=== PATIENT | female | born 1990 | race Asian ===

== ENCOUNTER 2017-06-09 17:22 | Day surgery (SDC) | payer OTHER ==
[2017-06-09 17:59] VITALS: BMI 26.6
[2017-06-09 18:00] VITALS: BP 136/81; TEMP 98.7
[2017-06-09] MEDS ORDERED: Lactated Ringer's 1,000 ML IV SCH (18:45)
[2017-06-09 19:14] LABS: FFN Internal QC Analyzer PASS (PASS); FFN Internal QC Cassette PASS (PASS); Fetal Fibronectin Negative (Negative)
--- NOTE | 2017-06-09 22:37 | PRG ---
DATE OF SERVICE: 06/09/2017 TIME OF SERVICE: 1730 hours. PRESENTING COMPLAINT: Contractions at 34 weeks gestation. HISTORY OF PRESENT ILLNESS: Ms. Bryan is a 26-year-old 2, para 1, previous and prev ious labor with delivery at 35 weeks, who presents complaining of contractions since 0900 jose rs today. She denies rupture of membranes, vaginal bleeding, change in vaginal discharge. She repor ts an active fetus. Of note, the patient has a significant varicose veins, greater right than left l eg and has had some complaints about this in the recent days, has had a right lower extremity Doppler ordered by Dr. Velasquez at [facility], but the patient has been noncompliant with Bindo tting this done. 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 She desires a TOLAC. A ntepartum record is not on the unit; however, blood type and other labs were obtained; 50-gram was wi thin normal limits, group B strep has not been done. PAST MEDICAL HISTORY: None. PAST SURGICAL HISTORY: C-sections. ALLERGIES: Denies. MEDICATIONS: vitamins. SOCIAL HISTORY: Denies tobacco, alcohol, or drug abuse. FAMILY HISTORY: Noncontributory. REVIEW OF SYSTEMS: Noncontributory. PHYSICAL EXAMINATION: GENERAL: Aged female, in no acute distress. VITAL SIGNS: Temperature 98.6, respirations 18, pulse 85, blood pressure 118/72. HEENT: Within normal limits. LUNGS: Clear to auscultation bilaterally. HEART: Regular rhythm. ABDOMEN: Soft. She has occasional indentable contractions every 5 minutes. FHTs are 140s. GENITOURINARY: Vulva is without lesions. Vaginal exam was performed by the nurse. The patient refu sed exam by male provider. She reports that her cervix to be closed, long, and high. fibronec tin and group B strep are collected. EXTREMITIES: The patient has varicosities, leg size does not seem to be significantly different righ t over the left. LABORATORY DATA: fibronectin negative. Group B strep pending. The patient declines lower ext remity Doppler due to insurance coverage. SUMMARY OF COURSE: The patient received 1 liter of lactated Ringer's, contractions ceased almost com pletely. She reported an active fetus and had reactive nonstress test. IMPRESSION: Contractions without evidence of labor. Negative fibronectin at 34 weeks gestation. PLAN: Discharge home. ER precautions. Keep scheduled followup with Dr. Velasquez.
[2017-06-10] MEDS ORDERED: FLU VACC QS2017-18 36 mo. & older 0.5 ML SYRINGE IM ONE (09:00)
== END 2017-06-09 19:56 | disposition home or self-care (01) ==
LOC: L&D/OP 17:22
PROVIDERS: ATTEND Obstetrics & Gynecology
DX: O47.03 False labor before 37 completed weeks of gestation, third trimester (principal); O22.03 Varicose veins of lower extremity in pregnancy, third trimester; Z3A.34 34 weeks gestation of pregnancy; Z79.899 Other long term (current) drug therapy; Z98.891 History of uterine scar from previous surgery
CPT/HCPCS: 82731; 87081; 96360; 96361; 99284

== ENCOUNTER 2017-07-08 15:49 | Day surgery (SDC) | payer OTHER ==
[2017-07-08 17:11] VITALS: BMI 27.6
--- NOTE | 2017-07-08 17:55 | HP ---
DATE OF SERVICE: 07/08/2017 PRIMARY FUR STRETCHER: Dr. Velasquez. CHIEF COMPLAINT: Abdominal pain. HISTORY OF PRESENT ILLNESS: The patient is a 26-year-old G2, P1 female with an intrauterine pregnanc y at 38 weeks and 3 days and has a history of previous for distress. She reports kory t she has had a contraction off and on for the last several days and reports that they had intensifie d this afternoon and are now spacing out again. She desires a trial of labor after and has a scheduled for 07/21/2017 if she does not enter labor on her own. She reports bloody show , but denies any leakage of fluid. She denies any fall or fever, headache, illness, chest pain, shor tness of breath, nausea, vomiting, diarrhea, or constipation. She denies any new rashes, any vaginal bleeding or leakage of fluid or urinary symptoms. PAST MEDICAL HISTORY: Negative. PAST SURGICAL HISTORY: Previous x1. SOCIAL HISTORY: Denies drug, alcohol or tobacco use. OBSTETRIC HISTORY: She has one 6-year-old child and no other pregnancies prior to the second one. ALLERGIES: No known drug allergies. MEDICATIONS: Vitamin supplements. OB LABS: Blood type is O positive, antibody screen is negative. Her Glucola was 84. She is rubella immune, HIV is nonreactive. Hepatitis B surface antigen is nonreactive. RPR is nonreactive. GBS s tatus is not recorded on the current documentation. PHYSICAL EXAMINATION: VITAL SIGNS: Blood pressure is 131/74, heart rate of 92, respiratory rate of 20, satting 99% on room air, temperature 98.0. GENERAL: She appears to be in no acute distress. She is alert and oriented, cooperative and pleasan t to interact with. HEENT: Normocephalic, atraumatic. LUNGS: Clear to auscultation bilaterally. HEART: Regular rate and rhythm. ABDOMEN: Gravid, soft, nontender. EXTREMITIES: Nontender, nonedematous. CERVICAL EXAM: Per nursing staff, she is 1.5 cm dilated, 50% effaced and -3 station, which is a valdez ge from her last visit with Dr. Velasquez reported closed. heart tracing performed for abdominal pain and . Fetus is noted to have a baseline in the 140s with moderate long-term variability, positive accelerations, no decelerations. She is havi ng contractions irregular about every 10-12 minutes with some irritability in between. ASSESSMENT AND PLAN: The patient is a 26-year-old G2, P1 female with an intrauterine at 38 weeks and 3 days, who desires a trial of labor after previous for distress. The satish ent is having intermittent contractions that come and go in intensity and frequency. She is in laten t labor at this time and early stages of latent labor and is not in much discomfort. Given the remot eness and wellbeing, NST is reactive with overall category 1 tracing. I have offered to discha rge the patient home where she can continue this processing. She has been given term labor precautio ns and encouraged to keep her scheduled appointment with Dr. Velasquez.
[2017-07-08] MEDS ORDERED: FLU VACC QS2017-18 36 mo. & older 0.5 ML SYRINGE IM ONE (18:30)
== END 2017-07-08 17:23 | disposition home or self-care (01) ==
LOC: L&D/OP 15:49
PROVIDERS: ATTEND Obstetrics & Gynecology
DX: O47.1 False labor at or after 37 completed weeks of gestation (principal); Z3A.38 38 weeks gestation of pregnancy; Z79.899 Other long term (current) drug therapy
CPT/HCPCS: 59025; 99282

== ENCOUNTER 2017-07-14 22:44 | Inpatient (IN) | payer OTHER ==
[2017-07-14 23:17] VITALS: BMI 28.3
[2017-07-15] MEDS ORDERED: Ondansetron HCl/PF 4 MG/2 ML Vial IVP PRN ×2 (03:16→09:43)
[2017-07-15] MEDS ORDERED: Promethazine HCl 25 MG/ML VIAL IM PRN ×2 (03:16→09:43)
[2017-07-15] MEDS ORDERED: Lactated Ringer's 1,000 ML IV SCH (03:16)
[2017-07-15] MEDS ORDERED: Lactated Ringer's 1,000 ML IV PRN (03:17)
[2017-07-15] MEDS ORDERED: Lidocaine 1% (PF) 30 ML VIAL SC PRN (03:30)
[2017-07-15] MEDS ORDERED: LR 500 ML/Oxytocin 10 units 500 ML IV SCH ×2 (03:30)
--- NOTE | 2017-07-15 04:10 | PDOC.LDHP ---
Labor and Delivery H&P Chief complaint: contractions, loss of fluid HPI: 26 yo @ 39w4d by LMP who presents with c/o early labor and SROM. Anetpartum course complicated by h/o LTCS x1. Pt has been counseled and desires TOLAC. Current gestational age (weeks): 39 Due date: 07/18/17 Dating criteria: last menstrual period Grav: 2 Para: 1 OB History Details: 2011 - LTCS for NRFHTs (IOL for oligo @ 35 weeks) Current complications: none Abnormal US findings: No Past Medical History: Varicose veins Current medications: pre-alayna vitamins Previous surgical history: low tranverse CS Allergies/Adverse Reactions: Allergies Allergy/AdvReac Type Severity Reaction Status Date / Time No Known Drug Allergies Allergy Verified 07/08/17 16:59 Social history: none - Physical Exam Vital signs reviewed and normal: yes FHT: category 2 (150s, mod tyler, +accels, one variable decel with rapid recovery , overall reassuring) Hendron contractions every: q1-3 min - Vaginal Exam cm dilated: 3 (per RN ) Effacement: 100% Station: -1 - OB Labs Blood type: O RH: positive Antibody Screen: negative HIV: negative RPR: negative HEPSAg: negative 1 hour GCT: negative GBS: negative Urine drug screen: not done Rubella: immune - Assessment 39w4d IUP Latent labor SROM H/O LTCS x1 - Plan Plan: admit to L&D, labor augmentation if indicated, informed consent obtained, anesthesia consult for pain management -: Pt has been counseled on R/B/A/I for TOLAC vs RCD and desires TOLAC. Continuous EFM.
[2017-07-15 05:55] LABS: Hemoglobin 11.7 g/dL (12.0-16.0); Mean Corpuscular HGB CONC 33.5 g/dL (32.0-36.0); Mean Corpuscular Hemoglobin 30.6 pg (27.0-31.0); Mean Corpuscular Volume 91.6 fl (81.0-99.0); Mean Platelet Volume 8.7 fL (7.4-10.4); Platelet Count 196 thou/uL (130-400); RBC Distribution Width 12.6 % (11.5-14.5); Red Blood Cell (RBC) Count 3.82 mill/uL (4.20-5.40); White Blood Cell (WBC) Count 16.6 thou/uL (4.8-10.8)
[2017-07-15 06:33] LABS: HBSAg Index 0.18 S/CO (0-0.99); Hep B Surf Ag Non-Reactive S/CO (NonReactive)
[2017-07-15] MEDS ORDERED: Lidocaine 1% (PF) 30 ML VIAL ONE (06:40)
[2017-07-15] MEDS ORDERED: LR / Pitocin 40 units/1000 ml 1,000 ML ONE ×2 (06:41→08:48)
[2017-07-15 06:44] LABS: Syphilis Antibody Nonreactive (Nonreactive); Syphilis Antibody Index 0.03 S/CO (<1.00 Non-Reactive)
--- NOTE | 2017-07-15 07:52 | PDOC.OPDEL ---
OB Operative/Delivery Note Delivery Dr/Surgeon: Gallo Velasquez Pre-Delivery Diagnosis: active labor, other (prior cs for tolac) Procedure/Post Delivery Dx: vaginal delivery after CS Weeks gestation: 39 Anesthesia: other (pudendal 20cc) - Findings A Sex: male (@[id number]) Weight: 0 oz - 1 min: 8 - 5 min: 9 - Additional Findings/Plan Placenta delivered: spontaneous Repaired Obstetrical Laceration: 2nd degree Estimated blood loss: 300 Post delivery plan: routine recovery
[2017-07-15] MEDS ORDERED: HYDROcodone/Acetaminophen 5/325 mg Tablet PO PRN (09:04)
[2017-07-15] MEDS ORDERED: Ibuprofen 800 MG TAB PO PRN (09:04)
[2017-07-15] MEDS ORDERED: LR / Pitocin 40 units/1000 ml 1,000 ML IV SCH ×2 (09:15→09:43)
[2017-07-15] MEDS ORDERED: Benzocaine/Menthol 20-0.5% 60 ML CAN TOP PRN (09:43)
[2017-07-15] MEDS ORDERED: Bisacodyl 10 MG SUPP PR PRN (09:43)
[2017-07-15] MEDS ORDERED: Milk Of Magnesia 30 ML UDCUP PO PRN (09:43)
[2017-07-15] MEDS ORDERED: Acetaminophen/Codeine 30-300mg Tablet PO PRN ×2 (09:43)
[2017-07-15] MEDS ORDERED: Preparation H Ointment 28 GM TUBE PR PRN (09:43)
[2017-07-15] MEDS ORDERED: Zolpidem Tartrate 5 MG TAB PO PRN (09:43)
[2017-07-15] MEDS ORDERED: Adacel (T-DAP) 0.5 ML VIAL IM ONE (09:43)
[2017-07-15] MEDS ORDERED: diphenhydrAMINE 25 MG CAP PO PRN (09:43)
[2017-07-15] MEDS ORDERED: Lanolin Ointment 7 GM TUBE TOP PRN (09:43)
[2017-07-15] MEDS ORDERED: Docusate Calcium (SURFAK) 240 MG CAP PO SCH (10:15)
[2017-07-15] MEDS ORDERED: Prenatal Vitamin 1 TAB PO SCH (10:15)
[2017-07-15] MEDS ORDERED: Ferrous Sulfate 325 MG TAB PO SCH ×2 (10:15→17:00)
[2017-07-15] MEDS: Ferrous Sulfate 325 MG TAB PO SCH (14:09)
[2017-07-15] MEDS: Ibuprofen 800 MG TAB PO SCH ×2 (16:24→17:19)
[2017-07-15] MEDS: Docusate Calcium (SURFAK) 240 MG CAP PO SCH (20:27)
[2017-07-16] MEDS: Ibuprofen 800 MG TAB PO SCH ×2 (05:54)
[2017-07-16 07:53] VITALS: BP 114/56; TEMP 97.6
[2017-07-16] MEDS: Ferrous Sulfate 325 MG TAB PO SCH (08:09)
[2017-07-16] MEDS: Docusate Calcium (SURFAK) 240 MG CAP PO SCH (08:28)
--- NOTE | 2017-07-16 08:34 | PDOC.PP ---
Post Progress Note Post Day #: 1 Subjective: Pain controlled. Breast feeding. Minimal lochia. PO intake tolerated: yes Flatus: yes Ambulation: yes Vital Signs (12 hours) Temp Pulse Resp BP 07/16/17 07:52 97.6 F 69 20 114/56 L 07/16/17 05:45 97.7 F 88 18 109/55 L 07/16/17 00:00 97.8 F 84 18 123/56 L Weight Weight 170 lb - Physical Examination General: NAD Cardiovascular: RRR Respiratory: non-labored breathing Abdominal: no distention, appropriately TTP Fundus firm & at: below umbilicus Extremities: negative homans (B) (varicose veins have mostly resolved s/p delivery) Neurological: no gross focal deficits Psychiatric: A&Ox3, normal affect Result Diagrams: 07/15/17 03:57 Additional Labs: Post Labs Blood Type O POSITIVE 07/15/17 03:57 Hep Bs Antigen Non-Reactive S/CO (NonReactive) 07/15/17 03:57 (1) (vaginal after ) Code(s): O34.219 - MATERNAL CARE FOR UNSP TYPE SCAR FROM PREVIOUS DEL Status: Acute - Assessment/Plan PPD1 VSSAF Stable for discharge home. F/U 6 weeks.
[2017-07-16] MEDS ORDERED: Prenatal Vitamin 1 TAB PO SCH (09:00)
== END 2017-07-16 14:35 | disposition home or self-care (01) | DRG 775 ==
LOC: L&D/OP 22:44 → L&D 07-15 03:15 → 3SW 07-15 09:50
PROVIDERS: ADMIT Obstetrics & Gynecology; ATTEND Obstetrics & Gynecology
PROC: 10E0XZZ Delivery of Products of Conception, External Approach (ICD-10-PCS; principal; 2017-07-15)
PROC: 0KQM0ZZ Repair Perineum Muscle, Open Approach (ICD-10-PCS; 2017-07-15)
DX: O34.211 Maternal care for low transverse scar from previous cesarean delivery (principal); N85.8 Other specified noninflammatory disorders of uterus; Z3A.39 39 weeks gestation of pregnancy; Z37.0 Single live birth; O70.1 Second degree perineal laceration during delivery
CPT/HCPCS: 85027; 86780; 86850; 86900; 86901; 87340; 99285; J0595; J2001; J2405

== ENCOUNTER 2019-06-23 10:02 | Outpatient (CLI) | payer BC ==
--- NOTE | 2019-06-23 12:02 | CT ---
CT Lower Ext Rt WO Con History: Mechanical breakdown Comparison: None. Findings: Compression screw second metatarsal head. Medial and dorsal plate and screw fixation great toe tarsometatarsal joint. There is also a compression screw through the medial and intermediate cuneiforms. Normal rotation of the great toe metatarsal. No acute superimposed fracture or malalignme nt. No hardware fracture. Adequate healing of the second metatarsal head/neck. Moderate degenerative disease of the great toe metatarsal phalangeal joint. No periarticular lucency. No osseous breakdown. Mild enthesopathic changes of the peroneus longus insertion along the lateral margin medial cuneiform . The tendons are intact. Muscles are intact. Impression: Intact surgical hardware without complication.
--- NOTE | 2019-06-23 12:06 | CT ---
CT Lower Ext Lt WO Con History: Mechanical breakdown Comparison: None. Findings: Satisfactory appearance of the medial and dorsal plate and screw fixation of the great toe tarsometatarsal joint as well as a screw between the medial and intermediate cuneiforms. There is also a compression screw through the second metatarsal head/neck with healing. No hardware complication is appreciated No acute superimposed fracture or malalignment. Low-grade enthesopathic changes of the peroneus longu s insertion upon the medial cuneiforms/metatarsal base. Mild degenerative changes of the great toe metatarsal phalangeal joint. Impression: Satisfactory postoperative appearance without complication.
== END 2019-06-23 10:03 | disposition home or self-care (01) ==
LOC: SCSCT 10:02
PROVIDERS: ATTEND Podiatrist Foot & Ankle Surgery
DX: T84.213A Breakdown (mechanical) of internal fixation device of bones of foot and toes, initial encounter (principal)